=== PATIENT | male | born 1935 | race African-American/Black ===

== ENCOUNTER 2021-04-12 10:58 | Outpatient (CLI) | payer MEDICARE, OTHER ==
[2021-04-12 21:13] LABS: SARS-CoV-2 PCR by NAA Not Detected (NotDetected)
== END 2021-04-12 10:59 | disposition home or self-care (01) ==
LOC: CSHLAB 10:58
PROVIDERS: ATTEND Surgery
DX: Z01.812 Encounter for preprocedural laboratory examination (principal); Z20.822 Contact with and (suspected) exposure to COVID-19
CPT/HCPCS: U0003; U0005

== ENCOUNTER 2021-04-17 05:51 | Day surgery (SDC) | payer MEDICARE, OTHER ==
[2021-04-16 12:13] VITALS: BMI 22.3
[2021-04-17] MEDS ORDERED: Lidocaine 1% MPF 2 ML VIAL ONE (06:30)
[2021-04-17] MEDS ORDERED: Bupivacaine PF 0.5% 30 ML VIAL ONE (06:42)
[2021-04-17] MEDS ORDERED: EPINEPHrine 1 MG/ML AMP ONE (06:42)
[2021-04-17] MEDS ORDERED: Heparin 0 ML ONE (06:43)
[2021-04-17] MEDS ORDERED: ceFAZolin 2 GM/DEX 5% 100 ML BAG ONE (06:53)
[2021-04-17] MEDS ORDERED: HYDROcodone/Acetaminophen 5/325 mg Tablet PO PRN (07:43)
== END 2021-04-17 09:00 | disposition home or self-care (01) ==
LOC: CSHSDC 05:51
PROVIDERS: ATTEND Surgery
DX: C61 Malignant neoplasm of prostate (principal); C79.82 Secondary malignant neoplasm of genital organs
CPT/HCPCS: 76000; 80053; 82248; 83615; 84100; 84153; 84550; C1788; J0171; J1642; S0020

== ENCOUNTER 2021-04-26 11:34 | Emergency (ER) | payer MEDICARE, OTHER ==
[2021-04-26 14:00] LABS: Hemoglobin 10.5 g/dL (13.5-17.5); Mean Corpuscular HGB CONC 31.4 g/dL (32.0-36.0); Mean Corpuscular Hemoglobin 35.4 pg (27.0-33.0); Mean Corpuscular Volume 112.5 fl (81.2-95.1); Mean Platelet Volume 11.3 fl (7.4-10.4); Platelet Count 85 10x3/uL (150-450); RBC Distribution Width 13.8 % (11.5-14.5); Red Blood Cell (RBC) Count 2.97 10x6/uL (4.32-5.72); White Blood Cell (WBC) Count 24.6 10x3/uL (3.5-10.5)
[2021-04-26 14:16] LABS: ALT (SGPT) 14 U/L (8-55); AST (SGOT) 18 U/L (5-34); Albumin 3.7 g/dL (3.4-4.8); Alkaline Phosphatase 99 U/L (40-110); Anion Gap 15 mmol/L (10-20); BUN (Urea Nitrogen) 38 mg/dL (8.4-25.7); Bilirubin, Total 0.6 mg/dL (0.2-1.2); Calc. Creatinine Clearance 0 mL/min (70-130); Calcium 9.5 mg/dL (7.8-10.44); Carbon Dioxide 21 mmol/L (23-31); Chloride 109 mmol/L (98-107); Globulin 2.5 g/dL (2.4-3.5); Glucose 90 mg/dL (83-110); Magnesium 1.6 mg/dL (1.6-2.6); Potassium 6.3 mmol/L (3.5-5.1); Protein, Total 6.2 g/dL (5.8-8.1); Sodium 139 mmol/L (136-145)
[2021-04-26 14:29] LABS: MDiff Complete? YES; Manual Diff?? YES
[2021-04-26 14:32] LABS: Band 42 % (5-11); Eosinophils 2 % (0-10); Lymphocytes 2 % (21-51); Metamyelocyte 2 % (0-0); Monocytes 2 % (0-10); Myelocyte 1 % (0-0); Neutrophil 47 % (42-75); Reactive Lymphocytes 1 % (0-10)
[2021-04-26 14:33] LABS: Platelet Morphology Comment Appears Decreased
== END 2021-04-26 16:01 | disposition home or self-care (01) ==
LOC: CSHERS 11:34
DX: K12.30 Oral mucositis (ulcerative), unspecified (principal); E86.0 Dehydration; I25.10 Atherosclerotic heart disease of native coronary artery without angina pectoris; I10 Essential (primary) hypertension; E78.5 Hyperlipidemia, unspecified; M10.9 Gout, unspecified; Z86.73 Personal history of transient ischemic attack (TIA), and cerebral infarction without residual deficits
CPT/HCPCS: 70360; 80053; 83735; 84443; 85025; 96360